=== PATIENT | male | born 1980 | race African-American/Black ===

== ENCOUNTER 2017-08-11 14:53 | Emergency (ER) | payer OTHER ==
[~2017-08-11] VITALS: Ht 170.2 cm; Wt 86.2 kg
[2017-08-11 15:13] VITALS: BP 91/56
--- NOTE | 2017-08-11 16:00 | Diagnostic Imaging Report ---
Indication: Chest pain Comparison: None 2 views of the chest obtained. Findings: Cardiomediastinal silhouette and pulmonary vascularity are within normal limits for age. The diaphragmatic contour is smooth and costophrenic angles are sharp. No pleural effusions are identified. The bones are unremarkable. Impression: No acute disease
[2017-08-11] MEDS ORDERED: Ketorolac 30mg Inj IM ONE (16:15)
[2017-08-11] MEDS ORDERED: PROMETHAZINE-D118 ML ORAL (16:33)
[2017-08-11] MEDS ORDERED: TAMIFLU75 MG ORAL (16:33)
[2017-08-11] MEDS ORDERED: IBUPROFEN600 MG ORAL (16:33)
[2017-08-11 16:40] VITALS: BP 114/69
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
== END 2017-08-11 16:42 | disposition home or self-care (01) ==
LOC: EMR 15:23
DX: J11.1 Influenza due to unidentified influenza virus with other respiratory manifestations (principal)
CPT/HCPCS: 71020; 96372; 99284; J1885; J2405